=== PATIENT | female | born 1940 | race Caucasian/White ===

== ENCOUNTER 2024-01-29 22:38 | Inpatient (IN) | payer MEDICARE, OTHER ==
[~2024-01-29] VITALS: Ht 162.6 cm; Wt 49.9 kg
[2024-01-29] MEDS ORDERED: diphenhydrAMINE 50 MG/1 ML VIAL ONE (23:00)
[2024-01-29 23:11] LABS: BASOPHILS % (AUTO) 0.4 % (0.0-2.0); EOSINOPHILS # (AUTO) 0.2 K/uL (0.0-0.7); EOSINOPHILS % (AUTO) 2.8 % (0.0-7.0); HEMATOCRIT 39.8 % (31.2-41.9); HEMOGLOBIN 13.3 g/dL (10.9-14.3); LYMPHOCYTES # (AUTO) 1.1 K/uL (0.8-4.8); LYMPHOCYTES % (AUTO) 20.1 % (20.5-51.5); MEAN CORPUSCULAR HEMOGLOBIN 27.8 uug (24.7-32.8); MEAN CORPUSCULAR HGB CONC 33 g/dL (32.3-35.6); MEAN CORPUSCULAR VOLUME 83.4 fL (75.5-95.3); MONOCYTES # (AUTO) 0.5 K/uL (0.1-1.30); MONOCYTES % (AUTO) 8.7 % (0.0-11.0); NEUTROPHILS # (AUTO) 3.9 K/uL (1.8-8.9); PLATELET COUNT (AUTO) 210 K/uL (179-408); RED BLOOD CELL COUNT(AUTO) 4.78 MIL/uL (3.63-4.92); RED CELL DISTRIBUTION WIDTH 14.9 % (12.3-17.7); WHITE BLOOD COUNT (AUTO) 5.7 K/uL (3.8-11.8)
[2024-01-29] MEDS: diphenhydrAMINE 50 MG/1 ML VIAL IV ONE (23:12)
[2024-01-29] MEDS ORDERED: DONE5TAB34 PO (23:14)
[2024-01-29] MEDS ORDERED: QUET25TA PO (23:14)
[2024-01-29] MEDS ORDERED: ATOR20TA PO (23:14)
[2024-01-29 23:18] LABS: DIFFERENTIAL COMMENT 1
[2024-01-29 23:21] LABS: CALCIUM 9.3 mg/dL (8.5-10.1); CARBON DIOXIDE 28 mmol/L (21-32); CHLORIDE 105 mmol/L (98-107); CREATININE 0.8 mg/dL (0.6-1.3); GLUCOSE 111 mg/dL (74-106); SODIUM SERUM 142 mmol/L (136-145); UREA NITROGEN, BLOOD 17 mg/dL (7-18)
[2024-01-29 23:22] LABS: AMMONIA 15 umol/L (11-32)
[2024-01-29 23:34] LABS: ETHANOL < 3 MG/DL (0-10)
[2024-01-29 23:35] LABS: ALANINE AMINOTRANSFERASE 20 U/L (14-59); ALBUMIN 3.9 g/dL (3.4-5.0); ALKALINE PHOSPHATASE 67 U/L (50-136); ASPARTATE AMINOTRANSFERASE 11 U/L (15-37); BILIRUBIN,DIRECT 0.3 mg/dL (0.0-0.2); BILIRUBIN,TOTAL 0.8 mg/dL (0.2-1.0); TOTAL PROTEIN, SERUM 7.2 g/dL (6.4-8.2)
[2024-01-29] MEDS ORDERED: LORAZEPAM 2 MG/1 ML VIAL ONE (23:40)
[2024-01-29 23:41] LABS: *BILIRUBIN,URIN NEGATIVE (NEGATIVE); *BLOOD, URINE NEGATIVE (NEGATIVE); *CLARITY,URINE CLEAR (CLEAR); *COLOR,URINE YELLOW (YELLOW); *KETONES,URINE NEGATIVE (NEGATIVE); *PROTEIN,URINE TRACE (NEGATIVE); LEUKOCYTE ESTERASE ,URINE 1+ (NEGATIVE); NITRITE, URINE POSITIVE (NEGATIVE); PH,URINE 5.5 (5.0-8.0); UGLUCOSE NEGATIVE (NEGATIVE)
[2024-01-29] MEDS: LORAZEPAM 2 MG/1 ML VIAL IV ONE (23:43)
[2024-01-29 23:46] LABS: BACTERIA,URINE MANY /HPF (NONE SEEN); RBC,URINE NONE SEEN /HPF (0-3); SQUAMOUS EPITHELIAL CELL,UR FEW /HPF (NONE SEEN)
[2024-01-29 23:47] LABS: MUCUS,URINE FEW /LPF (0-FEW)
[2024-01-29 23:48] LABS: ACETAMINOPHEN < 10.0 ug/mL (10-30)
[2024-01-29 23:51] LABS: *AMPHETAMINE, URINE NEGATIVE (NEGATIVE); *BARBITURATE, URINE NEGATIVE (NEGATIVE); *BENZODIAZEPINE, URINE NEGATIVE (NEGATIVE); *CANNABINOID, URINE NEGATIVE (NEGATIVE); *COCCAINE, URINE NEGATIVE (NEGATIVE); *OPIATE, URINE NEGATIVE (NEGATIVE); *PHENCYCLIDINE SCREEN,URINE NEGATIVE (NEGATIVE); FENTANYL, URINE NEGATIVE (NEGATIVE)
[2024-01-30] VITALS (7 sets, daily range): BP systolic 129–149; BP diastolic 56–88; TEMP 97.1–98.8; O2SAT 90–100
[2024-01-30] MEDS ORDERED: CEFTRIAXONE /D5W 50ML IVPB **ER PYXIS IV ONE (01:05)
[2024-01-30] MEDS: CEFTRIAXONE 1 G in IV DEXTROSE 5% 50 ML IV ONE (01:08)
[2024-01-30] MEDS ORDERED: MAGNESIUM HYDROXIDE 30 ML LIQUID UDC PO PRN (01:15)
[2024-01-30] MEDS ORDERED: QUETIAPINE FUMARATE 25 MG TABLET PO SCH (01:15)
[2024-01-30] MEDS ORDERED: ONDANSETRON 4 MG/2 ML VIAL IV PRN (01:15)
[2024-01-30] MEDS: CEFTRIAXONE 1 G in IV DEXTROSE 5% 50 ML IV SCH (02:38)
[2024-01-30] MEDS: IV NS 1000 ML 1,000 ML IV SCH (02:41)
[2024-01-30] MEDS ORDERED: QUETIAPINE FUMARATE 25 MG TABLET PO PRN (05:43)
[2024-01-30] MEDS ORDERED: CEFTRIAXONE 1 G in IV DEXTROSE 5% 50 ML IV SCH (05:45)
[2024-01-30] MEDS: IV NS 1000 ML 1,000 ML IV PRN (05:54)
[2024-01-30] MEDS: QUETIAPINE FUMARATE 25 MG TABLET PO PRN (08:56)
[2024-01-30] MEDS: DONEPEZIL 5 MG TABLET PO SCH (08:56)
[2024-01-30] MEDS: ATORVASTATIN 20 MG TABLET PO SCH (20:17)
[2024-01-31] MEDS: CEFTRIAXONE 1 G in IV DEXTROSE 5% 50 ML IV SCH (00:38)
[2024-01-31 06:06] VITALS: BP 167/76; TEMP 97.6; O2SAT 97
[2024-01-31 06:23] VITALS: BP 127/68; TEMP 97.6; O2SAT 97
[2024-01-31 08:11] LABS: ALANINE AMINOTRANSFERASE 12 U/L (14-59); ALKALINE PHOSPHATASE 60 U/L (50-136); ASPARTATE AMINOTRANSFERASE 9 U/L (15-37); BILIRUBIN,TOTAL 0.6 mg/dL (0.2-1.0); CALCIUM 8.6 mg/dL (8.5-10.1); CARBON DIOXIDE 29 mmol/L (21-32); CHLORIDE 104 mmol/L (98-107); CHOLESTEROL 124 mg/dL (<200); CREATININE 0.8 mg/dL (0.6-1.3); GLUCOSE 118 mg/dL (74-106); PHOSPHOROUS 2.7 mg/dL (2.5-4.9); POTASSIUM 4.2 mmol/L (3.5-5.1); SODIUM SERUM 140 mmol/L (136-145); TRIGLYCERIDES 41 MG/DL (30-150); UREA NITROGEN, BLOOD 12 mg/dL (7-18)
[2024-01-31 08:17] LABS: IRON, SERUM 48 ug/dL (50-175)
[2024-01-31 08:28] LABS: BASOPHILS % (AUTO) 0.7 % (0.0-2.0); EOSINOPHILS # (AUTO) 0.2 K/uL (0.0-0.7); EOSINOPHILS % (AUTO) 4.6 % (0.0-7.0); HEMATOCRIT 36.4 % (31.2-41.9); HEMOGLOBIN 12.3 g/dL (10.9-14.3); LYMPHOCYTES % (AUTO) 18.7 % (20.5-51.5); MEAN CORPUSCULAR HEMOGLOBIN 28.5 uug (24.7-32.8); MEAN CORPUSCULAR HGB CONC 34 g/dL (32.3-35.6); MEAN CORPUSCULAR VOLUME 84.6 fL (75.5-95.3); MONOCYTES # (AUTO) 0.4 K/uL (0.1-1.30); MONOCYTES % (AUTO) 8.6 % (0.0-11.0); NEUTROPHILS # (AUTO) 3.4 K/uL (1.8-8.9); NEUTROPHILS % (AUTO) 67.4 % (38.5-71.5); PLATELET COUNT (AUTO) 181 K/uL (179-408); RED CELL DISTRIBUTION WIDTH 14.9 % (12.3-17.7); WHITE BLOOD COUNT (AUTO) 5.1 K/uL (3.8-11.8)
[2024-01-31 08:31] LABS: THYROID STIMULATING HORMONE 1.332 mIU/mL (0.358-3.740)
[2024-01-31 08:34] LABS: DIFFERENTIAL COMMENT 1
[2024-01-31 08:59] LABS: HDL CHOLESTEROL 64 mg/dL (40-60)
[2024-01-31] MEDS: ACETAMINOPHEN 325 MG TABLET PO PRN (09:10)
[2024-01-31 11:41] VITALS: BP 112/61; TEMP 98.2; O2SAT 96
[2024-01-31] MEDS: QUETIAPINE FUMARATE 25 MG TABLET PO PRN (14:02)
[2024-01-31 16:00] VITALS: BP 147/78; TEMP 97.6; O2SAT 97
[2024-01-31 20:28] VITALS: BP 158/85; TEMP 97.7; O2SAT 94
[2024-01-31 22:30] VITALS: BP 146/74; TEMP 98.1; O2SAT 97
[2024-02-01 06:00] LABS: BASOPHILS % (AUTO) 0.5 % (0.0-2.0); EOSINOPHILS # (AUTO) 0.2 K/uL (0.0-0.7); HEMATOCRIT 39.1 % (31.2-41.9); LYMPHOCYTES # (AUTO) 0.8 K/uL (0.8-4.8); LYMPHOCYTES % (AUTO) 18.7 % (20.5-51.5); MEAN CORPUSCULAR HGB CONC 33 g/dL (32.3-35.6); MEAN CORPUSCULAR VOLUME 83.9 fL (75.5-95.3); MONOCYTES # (AUTO) 0.4 K/uL (0.1-1.30); NEUTROPHILS # (AUTO) 2.8 K/uL (1.8-8.9); NEUTROPHILS % (AUTO) 67.8 % (38.5-71.5); PLATELET COUNT (AUTO) 172 K/uL (179-408); RED BLOOD CELL COUNT(AUTO) 4.66 MIL/uL (3.63-4.92); RED CELL DISTRIBUTION WIDTH 14.7 % (12.3-17.7); WHITE BLOOD COUNT (AUTO) 4.2 K/uL (3.8-11.8)
[2024-02-01 06:11] LABS: CALCIUM 8.6 mg/dL (8.5-10.1); CARBON DIOXIDE 27 mmol/L (21-32); CHLORIDE 102 mmol/L (98-107); CREATININE 0.6 mg/dL (0.6-1.3); GLUCOSE 111 mg/dL (74-106); SODIUM SERUM 139 mmol/L (136-145); UREA NITROGEN, BLOOD 10 mg/dL (7-18)
[2024-02-01 06:32] VITALS: BP_SYST 157; BP_SYST 158; BP_DIAS 77; BP_DIAS 85; TEMP 97.7; TEMP 98; O2SAT 94; O2SAT 98
[2024-02-01 07:06] LABS: DIFFERENTIAL COMMENT 1
[2024-02-01] MEDS: FAMOTIDINE 20 MG TABLET PO SCH (09:11)
[2024-02-01] MEDS: MULTIVITAMINS,THERAPEUTIC TABLET PO SCH (09:11)
[2024-02-01 12:00] VITALS: BP 141/86; TEMP 98.1; O2SAT 96
[2024-02-01 15:00] VITALS: BP 151/88; O2SAT 98
[2024-02-01 16:36] VITALS: BP 156/84; TEMP 97.8; O2SAT 93
[2024-02-01 17:52] VITALS: O2SAT 97
[2024-02-01 20:35] VITALS: BP 145/77; TEMP 97.7; O2SAT 95
[2024-02-01] MEDS: DIVALPROEX SPRINKLE 125 MG CAP.SPRINK PO SCH (21:57)
[2024-02-02 06:25] VITALS: BP 155/83; TEMP 97.7; O2SAT 95
[2024-02-02 07:24] LABS: CALCIUM 8.9 mg/dL (8.5-10.1); CARBON DIOXIDE 28 mmol/L (21-32); CHLORIDE 105 mmol/L (98-107); CREATININE 0.7 mg/dL (0.6-1.3); GLUCOSE 112 mg/dL (74-106); POTASSIUM 4.3 mmol/L (3.5-5.1); SODIUM SERUM 141 mmol/L (136-145); UREA NITROGEN, BLOOD 12 mg/dL (7-18)
[2024-02-02 07:26] LABS: BASOPHILS % (AUTO) 0.5 % (0.0-2.0); EOSINOPHILS # (AUTO) 0.1 K/uL (0.0-0.7); EOSINOPHILS % (AUTO) 2.9 % (0.0-7.0); HEMATOCRIT 37.7 % (31.2-41.9); HEMOGLOBIN 12.9 g/dL (10.9-14.3); LYMPHOCYTES # (AUTO) 0.7 K/uL (0.8-4.8); LYMPHOCYTES % (AUTO) 15.1 % (20.5-51.5); MEAN CORPUSCULAR HEMOGLOBIN 28.5 uug (24.7-32.8); MEAN CORPUSCULAR HGB CONC 34 g/dL (32.3-35.6); MEAN CORPUSCULAR VOLUME 83.3 fL (75.5-95.3); MONOCYTES # (AUTO) 0.4 K/uL (0.1-1.30); MONOCYTES % (AUTO) 9.4 % (0.0-11.0); NEUTROPHILS # (AUTO) 3.3 K/uL (1.8-8.9); NEUTROPHILS % (AUTO) 72.1 % (38.5-71.5); PLATELET COUNT (AUTO) 197 K/uL (179-408); RED BLOOD CELL COUNT(AUTO) 4.52 MIL/uL (3.63-4.92); RED CELL DISTRIBUTION WIDTH 14.5 % (12.3-17.7); WHITE BLOOD COUNT (AUTO) 4.6 K/uL (3.8-11.8)
[2024-02-02 07:30] LABS: DIFFERENTIAL COMMENT 1
[2024-02-02 08:00] VITALS: BP 171/88; TEMP 97.6; O2SAT 94
[2024-02-02] MEDS: QUETIAPINE FUMARATE 25 MG TABLET PO SCH (09:50)
[2024-02-02 10:59] VITALS: BP 140/75; TEMP 97.2; O2SAT 96
[2024-02-02] MEDS: METOPROLOL TARTRATE 25 MG TABLET PO SCH (12:36)
[2024-02-02] MEDS ORDERED: hydrALAZINE HCL 25 MG TABLET PO PRN (13:00)
[2024-02-02 15:04] VITALS: BP 147/70; TEMP 98.2; O2SAT 97
[2024-02-02] MEDS ORDERED: QUETIAPINE FUMARATE 25 MG TABLET PO PRN (17:30)
[2024-02-02] MEDS ORDERED: QUETIAPINE FUMARATE 25 MG TABLET PO SCH (17:30)
[2024-02-02 20:00] VITALS: BP 125/78; TEMP 97.8; O2SAT 94
[2024-02-03] MEDS: OLANZAPINE ZYDIS 5 MG TAB.RAPDIS SL SCH (08:54)
[2024-02-03 11:15] VITALS: BP 130/81; TEMP 98.4; O2SAT 95
[2024-02-03 11:18] VITALS: BP 130/81; TEMP 98.4; O2SAT 95
[2024-02-03 15:47] VITALS: BP 148/52; TEMP 98.4; O2SAT 98
[2024-02-03 21:14] VITALS: BP 116/71; TEMP 97.8; O2SAT 94
[2024-02-04] MEDS: OLANZAPINE ZYDIS 5 MG TAB.RAPDIS SL PRN (00:29)
[2024-02-04 06:50] VITALS: BP 149/62; TEMP 97.8; O2SAT 96
[2024-02-04 12:00] VITALS: BP 144/64; TEMP 98; O2SAT 94
[2024-02-04] MEDS: PROTEIN SUPPLEMENT (PROSTAT) 30 ML LIQUID PO SCH (12:42)
[2024-02-04 16:16] VITALS: BP 132/75; TEMP 98.3
== END 2024-02-04 18:20 | DRG 871 ==
LOC: ER 22:41 → MEDSURG3 01-30 01:04
PROVIDERS: ATTEND Internal Medicine
DX: A41.51 Sepsis due to Escherichia coli [E. coli] (principal); G92.8 Other toxic encephalopathy; N39.0 Urinary tract infection, site not specified; F03.911 Unspecified dementia, unspecified severity, with agitation; F05 Delirium due to known physiological condition; Z68.1 Body mass index [BMI] 19.9 or less, adult; D68.59 Other primary thrombophilia; I67.82 Cerebral ischemia; E44.0 Moderate protein-calorie malnutrition; F03.B11 Unspecified dementia, moderate, with agitation; R62.7 Adult failure to thrive; Z87.891 Personal history of nicotine dependence; I77.819 Aortic ectasia, unspecified site; Z74.09 Other reduced mobility; E78.5 Hyperlipidemia, unspecified; Z78.1 Physical restraint status; Z87.81 Personal history of (healed) traumatic fracture; Z91.81 History of falling; I10 Essential (primary) hypertension; Z79.899 Other long term (current) drug therapy
CPT/HCPCS: 36415; 70450; 71045; 83550; 83605; 83735; 84100; 84443; 84484; 85025; 85730; 87040; 93005; A4606; A4663; A6209; G0378; G0480; J0696; J1200; J2060; J7040

== ENCOUNTER 2024-06-10 16:34 | Emergency (ER) | payer MEDICARE, OTHER ==
[~2024-06-10] VITALS: Ht 162.6 cm; Wt 56.7 kg
[2024-06-10 16:34] VITALS: O2SAT 94
[~2024-06-10 16:34] MED LIST: ATOR20TA PO; DONE5TAB34 PO; QUET25TA PO
== END 2024-06-10 17:38 | disposition home or self-care (01) ==
LOC: ER 16:34
DX: S52.612A Displaced fracture of left ulna styloid process, initial encounter for closed fracture (principal); S52.592A Other fractures of lower end of left radius, initial encounter for closed fracture; F03.90 Unspecified dementia, unspecified severity, without behavioral disturbance, psychotic disturbance, mood disturbance, and anxiety; Z79.899 Other long term (current) drug therapy; W18.39XA Other fall on same level, initial encounter; Y93.89 Activity, other specified; Y92.89 Other specified places as the place of occurrence of the external cause; Y99.8 Other external cause status
CPT/HCPCS: 73100; A4606; A4663

== ENCOUNTER 2024-06-19 13:40 | Inpatient (IN) | payer MEDICARE, OTHER ==
[~2024-06-19] VITALS: Ht 154.9 cm; Wt 58.7 kg
[2024-06-19] MEDS ORDERED: OLAN2.5T3 PO (14:06)
[2024-06-19] MEDS ORDERED: DIVA125C5 PO (14:06)
[2024-06-19] MEDS ORDERED: METO25TA6 PO (14:06)
[2024-06-19] MEDS ORDERED: DONE10TA44 PO (14:06)
[2024-06-19] MEDS ORDERED: FAMO20TA8 PO (14:06)
[2024-06-19 14:21] LABS: BASOPHILS % (AUTO) 0.6 % (0.0-2.0); EOSINOPHILS # (AUTO) 0.3 K/uL (0.0-0.7); EOSINOPHILS % (AUTO) 5.6 % (0.0-7.0); HEMATOCRIT 38.9 % (31.2-41.9); LYMPHOCYTES # (AUTO) 1.4 K/uL (0.8-4.8); LYMPHOCYTES % (AUTO) 29.8 % (20.5-51.5); MEAN CORPUSCULAR HEMOGLOBIN 29.7 uug (24.7-32.8); MEAN CORPUSCULAR HGB CONC 33 g/dL (32.3-35.6); MEAN CORPUSCULAR VOLUME 88.9 fL (75.5-95.3); MONOCYTES # (AUTO) 0.4 K/uL (0.1-1.30); MONOCYTES % (AUTO) 9.1 % (0.0-11.0); NEUTROPHILS # (AUTO) 2.6 K/uL (1.8-8.9); NEUTROPHILS % (AUTO) 54.9 % (38.5-71.5); PLATELET COUNT (AUTO) 227 K/uL (179-408); RED BLOOD CELL COUNT(AUTO) 4.37 MIL/uL (3.63-4.92); RED CELL DISTRIBUTION WIDTH 14.4 % (12.3-17.7); WHITE BLOOD COUNT (AUTO) 4.8 K/uL (3.8-11.8)
[2024-06-19 14:35] LABS: DIFFERENTIAL COMMENT 1
[2024-06-19] MEDS: IV NORMAL SALINE 1000 ML BAG IV ONE (14:40)
[2024-06-19 15:01] LABS: *BILIRUBIN,URIN NEGATIVE (NEGATIVE); *BLOOD, URINE NEGATIVE (NEGATIVE); *CLARITY,URINE SLIGHTLY CLOUDY (CLEAR); *COLOR,URINE YELLOW (YELLOW); *KETONES,URINE NEGATIVE (NEGATIVE); *PROTEIN,URINE NEGATIVE (NEGATIVE); *UROBILINOGEN,URINE 0.2 E.U./dl (NORMAL); LEUKOCYTE ESTERASE ,URINE TRACE (NEGATIVE); NITRITE, URINE NEGATIVE (NEGATIVE); PH,URINE 6.5 (5.0-8.0); UGLUCOSE NEGATIVE (NEGATIVE)
[2024-06-19 15:13] LABS: CALCIUM 9.7 mg/dL (8.5-10.1); CARBON DIOXIDE 29 mmol/L (21-32); CHLORIDE 109 mmol/L (98-107); CREATININE 0.9 mg/dL (0.6-1.3); GLUCOSE 99 mg/dL (74-106); SODIUM SERUM 148 mmol/L (136-145); UREA NITROGEN, BLOOD 20 mg/dL (7-18)
[2024-06-19 15:29] LABS: ALANINE AMINOTRANSFERASE 12 U/L (14-59); ALBUMIN 3.7 g/dL (3.4-5.0); ALKALINE PHOSPHATASE 67 U/L (50-136); ASPARTATE AMINOTRANSFERASE 11 U/L (15-37); BILIRUBIN,DIRECT 0.1 mg/dL (0.0-0.2); BILIRUBIN,TOTAL 0.6 mg/dL (0.2-1.0); NT-PRO BNP 526 pg/mL (0-125); TOTAL PROTEIN, SERUM 8.6 g/dL (6.4-8.2)
[2024-06-19 18:18] LABS: BACTERIA,URINE MANY /HPF (NONE SEEN); SQUAMOUS EPITHELIAL CELL,UR FEW /HPF (NONE SEEN); WBC,URINE 20-50 /HPF (0-3)
[2024-06-19 18:19] LABS: URINE AMORPHOUS URATE FEW /HPF
[2024-06-19] MEDS ORDERED: MAGNESIUM HYDROXIDE 30 ML LIQUID UDC PO PRN (18:45)
[2024-06-19] MEDS ORDERED: REMEDY ESSENTIAL ZINC PASTE 113 GM TP PRN (18:45)
[2024-06-19] MEDS ORDERED: OLANZAPINE 2.5 MG TABLET PO PRN (18:45)
[2024-06-19] MEDS ORDERED: ACETAMINOPHEN 325 MG TABLET PO PRN (18:45)
[2024-06-19] MEDS ORDERED: QUETIAPINE FUMARATE 25 MG TABLET PO PRN (18:45)
[2024-06-19] MEDS ORDERED: ONDANSETRON 4 MG/2 ML VIAL IV PRN (18:45)
[2024-06-19] MEDS: IV 1/2NS 1000 ML 1,000 ML IV SCH (19:45)
[2024-06-19] MEDS: CEFTRIAXONE 1 G in IV DEXTROSE 5% 50 ML IV SCH (21:00)
[2024-06-19] MEDS: ATORVASTATIN 20 MG TABLET PO SCH (21:00)
[2024-06-19] MEDS: DONEPEZIL 10 MG TABLET PO SCH (21:00)
[2024-06-19] MEDS ORDERED: CEFTRIAXONE 1 G VIAL ONE (23:24)
[2024-06-19] MEDS ORDERED: DONEPEZIL 5 MG TABLET ONE (23:25)
[2024-06-19] MEDS ORDERED: ATORVASTATIN 20 MG TABLET ONE (23:25)
[2024-06-19] MEDS ORDERED: LIDOCAINE HCL 1% 20 ML VIAL ONE (23:27)
[2024-06-19] MEDS ORDERED: CEFTRIAXONE /D5W 50ML IVPB **ER PYXIS IV ONE (23:43)
[2024-06-20] VITALS (7 sets, daily range): BP systolic 115–144; BP diastolic 58–96; TEMP 97.5–98.6; O2SAT 95–100
[2024-06-20] MEDS ORDERED: PANTOPRAZOLE SODIUM 40 MG VIAL IV SCH (09:00)
[2024-06-20] MEDS: DONEPEZIL 5 MG TABLET PO SCH (09:04)
[2024-06-20] MEDS: DIVALPROEX SPRINKLE 125 MG CAP.SPRINK PO SCH (09:04)
[2024-06-20] MEDS: FAMOTIDINE 20 MG TABLET PO SCH (09:04)
[2024-06-20 09:56] LABS: BASOPHILS % (AUTO) 0.7 % (0.0-2.0); EOSINOPHILS # (AUTO) 0.2 K/uL (0.0-0.7); EOSINOPHILS % (AUTO) 4.8 % (0.0-7.0); HEMATOCRIT 36.7 % (31.2-41.9); HEMOGLOBIN 12.6 g/dL (10.9-14.3); LYMPHOCYTES # (AUTO) 1.1 K/uL (0.8-4.8); LYMPHOCYTES % (AUTO) 26.4 % (20.5-51.5); MEAN CORPUSCULAR HEMOGLOBIN 30.8 uug (24.7-32.8); MEAN CORPUSCULAR HGB CONC 34 g/dL (32.3-35.6); MEAN CORPUSCULAR VOLUME 89.7 fL (75.5-95.3); MONOCYTES # (AUTO) 0.5 K/uL (0.1-1.30); MONOCYTES % (AUTO) 11.3 % (0.0-11.0); NEUTROPHILS # (AUTO) 2.3 K/uL (1.8-8.9); NEUTROPHILS % (AUTO) 56.8 % (38.5-71.5); PLATELET COUNT (AUTO) 196 K/uL (179-408); RED BLOOD CELL COUNT(AUTO) 4.09 MIL/uL (3.63-4.92); RED CELL DISTRIBUTION WIDTH 13.8 % (12.3-17.7); WHITE BLOOD COUNT (AUTO) 4.1 K/uL (3.8-11.8)
[2024-06-20 10:10] LABS: DIFFERENTIAL COMMENT 1
[2024-06-20 10:32] LABS: CALCIUM 9.2 mg/dL (8.5-10.1); CARBON DIOXIDE 25 mmol/L (21-32); CHLORIDE 109 mmol/L (98-107); CREATININE 0.7 mg/dL (0.6-1.3); GLUCOSE 80 mg/dL (74-106); MAGNESIUM 2.1 mg/dL (1.8-2.4); PHOSPHOROUS 3.7 mg/dL (2.5-4.9); POTASSIUM 4.5 mmol/L (3.5-5.1); SODIUM SERUM 145 mmol/L (136-145); UREA NITROGEN, BLOOD 15 mg/dL (7-18)
[2024-06-20] MEDS: METOPROLOL TARTRATE 25 MG TABLET PO SCH (16:57)
[2024-06-21 06:44] LABS: BASOPHILS % (AUTO) 0.7 % (0.0-2.0); EOSINOPHILS # (AUTO) 0.2 K/uL (0.0-0.7); EOSINOPHILS % (AUTO) 5.2 % (0.0-7.0); HEMATOCRIT 32.9 % (31.2-41.9); HEMOGLOBIN 11.5 g/dL (10.9-14.3); LYMPHOCYTES # (AUTO) 1.4 K/uL (0.8-4.8); LYMPHOCYTES % (AUTO) 36.6 % (20.5-51.5); MEAN CORPUSCULAR HEMOGLOBIN 31.2 uug (24.7-32.8); MEAN CORPUSCULAR HGB CONC 35 g/dL (32.3-35.6); MEAN CORPUSCULAR VOLUME 88.8 fL (75.5-95.3); MONOCYTES # (AUTO) 0.4 K/uL (0.1-1.30); MONOCYTES % (AUTO) 11.4 % (0.0-11.0); NEUTROPHILS # (AUTO) 1.8 K/uL (1.8-8.9); NEUTROPHILS % (AUTO) 46.1 % (38.5-71.5); PLATELET COUNT (AUTO) 176 K/uL (179-408); WHITE BLOOD COUNT (AUTO) 3.9 K/uL (3.8-11.8)
[2024-06-21 06:51] LABS: DIFFERENTIAL COMMENT 1
[2024-06-21 07:15] LABS: CALCIUM 8.7 mg/dL (8.5-10.1); CARBON DIOXIDE 25 mmol/L (21-32); CHLORIDE 106 mmol/L (98-107); CREATININE 0.8 mg/dL (0.6-1.3); GLUCOSE 97 mg/dL (74-106); MAGNESIUM 1.8 mg/dL (1.8-2.4); PHOSPHOROUS 3.6 mg/dL (2.5-4.9); POTASSIUM 4.2 mmol/L (3.5-5.1); SODIUM SERUM 140 mmol/L (136-145); UREA NITROGEN, BLOOD 17 mg/dL (7-18)
[2024-06-21 11:58] VITALS: BP 116/96; TEMP 98.6; O2SAT 100
[2024-06-21 16:00] VITALS: BP 135/62; TEMP 98.6; O2SAT 100
[2024-06-21 19:05] VITALS: BP 132/63; TEMP 96.9; O2SAT 95
[2024-06-21 23:27] VITALS: BP 128/52; TEMP 97.7; O2SAT 94
[2024-06-22 06:20] VITALS: BP 143/58; TEMP 97.8; O2SAT 95
[2024-06-22 08:00] VITALS: BP 153/67; TEMP 97.5; O2SAT 97
[2024-06-22 08:57] LABS: BASOPHILS % (AUTO) 0.7 % (0.0-2.0); EOSINOPHILS # (AUTO) 0.2 K/uL (0.0-0.7); EOSINOPHILS % (AUTO) 4.1 % (0.0-7.0); HEMATOCRIT 35.4 % (31.2-41.9); HEMOGLOBIN 12.3 g/dL (10.9-14.3); LYMPHOCYTES # (AUTO) 0.9 K/uL (0.8-4.8); LYMPHOCYTES % (AUTO) 21.3 % (20.5-51.5); MEAN CORPUSCULAR HEMOGLOBIN 30.1 uug (24.7-32.8); MEAN CORPUSCULAR HGB CONC 35 g/dL (32.3-35.6); MONOCYTES # (AUTO) 0.4 K/uL (0.1-1.30); NEUTROPHILS # (AUTO) 2.8 K/uL (1.8-8.9); NEUTROPHILS % (AUTO) 64.9 % (38.5-71.5); PLATELET COUNT (AUTO) 187 K/uL (179-408); RED BLOOD CELL COUNT(AUTO) 4.07 MIL/uL (3.63-4.92); RED CELL DISTRIBUTION WIDTH 14.1 % (12.3-17.7); WHITE BLOOD COUNT (AUTO) 4.2 K/uL (3.8-11.8)
[2024-06-22 09:07] LABS: DIFFERENTIAL COMMENT 1
[2024-06-22 09:27] LABS: CALCIUM 8.6 mg/dL (8.5-10.1); CARBON DIOXIDE 26 mmol/L (21-32); CHLORIDE 104 mmol/L (98-107); CREATININE 0.8 mg/dL (0.6-1.3); GLUCOSE 119 mg/dL (74-106); MAGNESIUM 1.8 mg/dL (1.8-2.4); PHOSPHOROUS 3.1 mg/dL (2.5-4.9); POTASSIUM 4.1 mmol/L (3.5-5.1); SODIUM SERUM 140 mmol/L (136-145); UREA NITROGEN, BLOOD 10 mg/dL (7-18)
[2024-06-22] MEDS ORDERED: NITR100C6 PO (16:10)
[2024-06-22 17:13] VITALS: BP 144/77; TEMP 97.6; O2SAT 97
[2024-06-22 18:06] VITALS: BP 144/77
[2024-06-22] MEDS ORDERED: NITROFURANTOIN/NITROFURAN MAC 100 MG CAPSULE PO SCH (21:00)
== END 2024-06-22 18:00 | DRG 689 ==
LOC: ER 13:40 → MEDSURG3 06-20 01:01 → TELE3 06-20 02:01 → MEDSURG3 06-21 06:14 → MEDSURG1 06-21 23:00
DX: N39.0 Urinary tract infection, site not specified (principal); G92.8 Other toxic encephalopathy; N17.0 Acute kidney failure with tubular necrosis; E87.0 Hyperosmolality and hypernatremia; B95.2 Enterococcus as the cause of diseases classified elsewhere; E86.0 Dehydration; F01.50 Vascular dementia, unspecified severity, without behavioral disturbance, psychotic disturbance, mood disturbance, and anxiety; E78.5 Hyperlipidemia, unspecified; Z79.899 Other long term (current) drug therapy; S52.502D Unspecified fracture of the lower end of left radius, subsequent encounter for closed fracture with routine healing; W19.XXXD Unspecified fall, subsequent encounter; I11.9 Hypertensive heart disease without heart failure
CPT/HCPCS: 36415; 70450; 71045; 83605; 83735; 84100; 84484; 85025; 87040; A4606; A4663; G0378; J0696; J3490; J7040

== ENCOUNTER 2024-06-22 18:01 | Inpatient (IN) | payer MEDICARE, OTHER ==
[~2024-06-22] VITALS: Ht 165.1 cm; Wt 60.4 kg
[~2024-06-22 18:01] MED LIST changes: +DIVA125C5 PO; +DONE10TA44 PO; +FAMO20TA8 PO; +METO25TA6 PO; +NITR100C6 PO; +OLAN2.5T3 PO
[2024-06-22 20:21] VITALS: BP 134/66; TEMP 97.1; O2SAT 93
[2024-06-22] MEDS: DONEPEZIL 10 MG TABLET PO SCH (21:07)
[2024-06-22] MEDS: ATORVASTATIN 20 MG TABLET PO SCH (21:07)
[2024-06-22] MEDS ORDERED: REMEDY ESSENTIAL ZINC PASTE 113 GM TOP PRN (23:00)
[2024-06-23 06:19] VITALS: BP 145/73; TEMP 98.5; O2SAT 95
[2024-06-23 06:45] VITALS: BP 119/72; TEMP 97.2; O2SAT 93
[2024-06-23 09:15] VITALS: BP 148/70; TEMP 97.6; O2SAT 95
[2024-06-23] MEDS: NITROFURANTOIN/NITROFURAN MAC 100 MG CAPSULE PO SCH (10:18)
[2024-06-23] MEDS: DONEPEZIL 5 MG TABLET PO SCH (10:19)
[2024-06-23] MEDS: FAMOTIDINE 20 MG TABLET PO SCH (10:19)
[2024-06-23] MEDS: DIVALPROEX SPRINKLE 125 MG CAP.SPRINK PO SCH (10:19)
[2024-06-23] MEDS: METOPROLOL TARTRATE 25 MG TABLET PO SCH (10:19)
[2024-06-23 15:17] VITALS: TEMP 97.5
[2024-06-23 20:00] VITALS: TEMP 97.2
[2024-06-24 06:43] VITALS: TEMP 97.1
[2024-06-24 08:07] VITALS: BP 126/64; TEMP 97.7; O2SAT 95
[2024-06-24] MEDS: OLANZAPINE 2.5 MG TABLET PO PRN (10:49)
[2024-06-24 11:57] LABS: ABG BASE EXCESS -0.8 mmol/L (-2.0-3.0); ABG HCO3 22.9 mmol/L (21.0-28.0); ABG PCO2 35.2 mmHg (32.0-45.0); ABG PH 7.432 (7.350-7.450); ABG PO2 51.4 mmHg (83.0-108.0); ABG TOTAL HEMOGLOBIN 13.8 G/dL (12.0-16.0); AaDO2 87.7 mmHg; COHb 0.8 % (0.5-1.5); MetHb 0.3 % (0.0-1.5); O2Hb 83.2 % (94.0-98.0)
[2024-06-24 13:11] LABS: BASOPHILS % (AUTO) 0.6 % (0.0-2.0); EOSINOPHILS # (AUTO) 0.3 K/uL (0.0-0.7); EOSINOPHILS % (AUTO) 5.2 % (0.0-7.0); HEMATOCRIT 36.8 % (31.2-41.9); HEMOGLOBIN 12.4 g/dL (10.9-14.3); LYMPHOCYTES # (AUTO) 1.1 K/uL (0.8-4.8); LYMPHOCYTES % (AUTO) 22.4 % (20.5-51.5); MEAN CORPUSCULAR HEMOGLOBIN 29.7 uug (24.7-32.8); MEAN CORPUSCULAR HGB CONC 34 g/dL (32.3-35.6); MEAN CORPUSCULAR VOLUME 87.8 fL (75.5-95.3); MONOCYTES # (AUTO) 0.5 K/uL (0.1-1.30); MONOCYTES % (AUTO) 11.2 % (0.0-11.0); NEUTROPHILS % (AUTO) 60.6 % (38.5-71.5); PLATELET COUNT (AUTO) 197 K/uL (179-408); RED BLOOD CELL COUNT(AUTO) 4.19 MIL/uL (3.63-4.92); RED CELL DISTRIBUTION WIDTH 13.9 % (12.3-17.7); WHITE BLOOD COUNT (AUTO) 4.9 K/uL (3.8-11.8)
[2024-06-24 13:14] LABS: DIFFERENTIAL COMMENT 1
[2024-06-24 13:30] LABS: ALANINE AMINOTRANSFERASE 12 U/L (14-59); ALBUMIN 3.2 g/dL (3.4-5.0); ALKALINE PHOSPHATASE 67 U/L (50-136); ASPARTATE AMINOTRANSFERASE 9 U/L (15-37); BILIRUBIN,TOTAL 0.7 mg/dL (0.2-1.0); CALCIUM 9.3 mg/dL (8.5-10.1); CARBON DIOXIDE 26 mmol/L (21-32); CHLORIDE 106 mmol/L (98-107); CREATININE 0.8 mg/dL (0.6-1.3); GLUCOSE 110 mg/dL (74-106); MAGNESIUM 2.1 mg/dL (1.8-2.4); PHOSPHOROUS 3.9 mg/dL (2.5-4.9); POTASSIUM 4.3 mmol/L (3.5-5.1); SODIUM SERUM 142 mmol/L (136-145); TOTAL PROTEIN, SERUM 6.3 g/dL (6.4-8.2); UREA NITROGEN, BLOOD 23 mg/dL (7-18)
[2024-06-24 14:45] LABS: AMMONIA 18 umol/L (11-32)
[2024-06-24] MEDS ORDERED: ALBUTEROL SULFATE 2.5 MG/3 ML NEBU NEB PRN (15:30)
[2024-06-24] MEDS ORDERED: ACETAMINOPHEN 325 MG TABLET PO PRN (15:30)
[2024-06-24] MEDS ORDERED: TRAMADOL HCL 50 MG TABLET PO PRN (16:15)
[2024-06-24 16:22] VITALS: BP 123/55; TEMP 97.4; O2SAT 95
[2024-06-24] MEDS: HYDROCODONE/APAP 5-325MG TABLET PO PRN (17:21)
[2024-06-24 21:23] VITALS: BP 90/55; TEMP 97.9; O2SAT 95
[2024-06-25 06:41] VITALS: BP 129/52; TEMP 97.6; O2SAT 95
[2024-06-25 08:32] VITALS: BP 119/52; TEMP 97.7; O2SAT 90
[2024-06-25 16:07] VITALS: BP 124/63; TEMP 97.6; O2SAT 95
[2024-06-25] MEDS: QUETIAPINE FUMARATE 25 MG TABLET PO PRN (19:37)
[2024-06-25 21:45] VITALS: BP 105/70; TEMP 98.1; O2SAT 95
[2024-06-25] MEDS: DOCUSATE SODIUM 100 MG CAPSULE PO SCH (22:42)
[2024-06-26 06:34] VITALS: BP 120/73; TEMP 97.4; O2SAT 95
[2024-06-26 20:47] VITALS: BP 96/72; TEMP 98.3; O2SAT 96
[2024-06-27 05:43] VITALS: BP 147/71; TEMP 98.2; O2SAT 96
[2024-06-27 08:00] VITALS: BP 128/61; TEMP 97.6; O2SAT 94
[2024-06-27 16:21] VITALS: BP 111/67; TEMP 97.8; O2SAT 94
[2024-06-27 20:31] VITALS: BP 134/65; TEMP 98.1; O2SAT 95
[2024-06-28 06:40] VITALS: BP 113/64; TEMP 98.2; O2SAT 90
[2024-06-28 07:45] VITALS: O2SAT 95
[2024-06-28 08:06] VITALS: BP 111/62; TEMP 97.8; O2SAT 95
[2024-06-28 12:41] LABS: BASOPHILS % (AUTO) 0.1 % (0.0-2.0); EOSINOPHILS % (AUTO) 0.1 % (0.0-7.0); HEMATOCRIT 35.3 % (31.2-41.9); HEMOGLOBIN 11.9 g/dL (10.9-14.3); LYMPHOCYTES # (AUTO) 0.8 K/uL (0.8-4.8); MEAN CORPUSCULAR HEMOGLOBIN 29.8 uug (24.7-32.8); MEAN CORPUSCULAR HGB CONC 34 g/dL (32.3-35.6); MEAN CORPUSCULAR VOLUME 88.1 fL (75.5-95.3); MONOCYTES # (AUTO) 1.6 K/uL (0.1-1.30); MONOCYTES % (AUTO) 14.2 % (0.0-11.0); NEUTROPHILS # (AUTO) 8.8 K/uL (1.8-8.9); NEUTROPHILS % (AUTO) 78.6 % (38.5-71.5); PLATELET COUNT (AUTO) 183 K/uL (179-408); RED CELL DISTRIBUTION WIDTH 13.7 % (12.3-17.7); WHITE BLOOD COUNT (AUTO) 11.2 K/uL (3.8-11.8)
[2024-06-28 12:48] LABS: ABG BASE EXCESS 4.1 mmol/L (-2.0-3.0); ABG HCO3 27.7 mmol/L (21.0-28.0); ABG PH 7.481 (7.350-7.450); ABG PO2 74.4 mmHg (83.0-108.0); ABG SITE RIGHT RADIAL; ABG TOTAL HEMOGLOBIN 13.3 G/dL (12.0-16.0); AaDO2 95.9 mmHg; COHb 1.4 % (0.5-1.5); MetHb 0.1 % (0.0-1.5)
[2024-06-28 12:52] LABS: DIFFERENTIAL COMMENT 1
[2024-06-28 12:53] LABS: AMMONIA 26 umol/L (11-32)
[2024-06-28 13:08] LABS: CALCIUM 9.3 mg/dL (8.5-10.1); CARBON DIOXIDE 29 mmol/L (21-32); CHLORIDE 106 mmol/L (98-107); CREATININE 0.8 mg/dL (0.6-1.3); GLUCOSE 116 mg/dL (74-106); POTASSIUM 4.3 mmol/L (3.5-5.1); SODIUM SERUM 145 mmol/L (136-145); UREA NITROGEN, BLOOD 19 mg/dL (7-18)
[2024-06-28 13:14] LABS: ALANINE AMINOTRANSFERASE 6 U/L (14-59); ALBUMIN 2.9 g/dL (3.4-5.0); ALKALINE PHOSPHATASE 72 U/L (50-136); ASPARTATE AMINOTRANSFERASE 6 U/L (15-37); BILIRUBIN,TOTAL 1.1 mg/dL (0.2-1.0); TOTAL PROTEIN, SERUM 6.7 g/dL (6.4-8.2)
[2024-06-28] MEDS: IV D5/ 0.9% NACL 1,000 ML IV PRN (15:01)
[2024-06-28 15:13] LABS: *BILIRUBIN,URIN NEGATIVE (NEGATIVE); *BLOOD, URINE NEGATIVE (NEGATIVE); *CLARITY,URINE CLEAR (CLEAR); *COLOR,URINE AMBER (YELLOW); *KETONES,URINE TRACE (NEGATIVE); *PROTEIN,URINE TRACE (NEGATIVE); *UROBILINOGEN,URINE 0.2 E.U./dl (NORMAL); LEUKOCYTE ESTERASE ,URINE NEGATIVE (NEGATIVE); NITRITE, URINE NEGATIVE (NEGATIVE); PH,URINE 5.5 (5.0-8.0); UGLUCOSE NEGATIVE (NEGATIVE)
[2024-06-28 15:44] LABS: BACTERIA,URINE FEW /HPF (NONE SEEN); CALCIUM OXALATE CRYSTALS,UR FEW /HPF (NONE SEEN); SQUAMOUS EPITHELIAL CELL,UR FEW /HPF (NONE SEEN); WBC,URINE 0-3 /HPF (0-3)
[2024-06-28 16:09] VITALS: BP 106/67; TEMP 97.6; O2SAT 95
[2024-06-28 17:00] VITALS: BP 106/67
[2024-06-28] MEDS: PIPERACILLIN SODIUM/TAZOBACTAM 3.375 G in IV DEXTROSE 5% 50 ML IV SCH (17:46)
[2024-06-29] MEDS ORDERED: PIPERACILLIN SODIUM/TAZOBACTAM 3.375 G in IV DEXTROSE 5% 100 ML IV SCH (02:00)
== END 2024-06-28 21:00 | disposition short-term general hospital (02) | DRG 689 ==
PROVIDERS: ADMIT Physical Medicine & Rehabilitation Pain Medicine; ATTEND Physical Medicine & Rehabilitation Pain Medicine
DX: N39.0 Urinary tract infection, site not specified (principal); G92.8 Other toxic encephalopathy; N17.0 Acute kidney failure with tubular necrosis; D68.59 Other primary thrombophilia; E44.0 Moderate protein-calorie malnutrition; I10 Essential (primary) hypertension; Z91.81 History of falling; F01.50 Vascular dementia, unspecified severity, without behavioral disturbance, psychotic disturbance, mood disturbance, and anxiety; E78.5 Hyperlipidemia, unspecified; R53.1 Weakness; E86.0 Dehydration; F91.9 Conduct disorder, unspecified; I77.819 Aortic ectasia, unspecified site; R62.7 Adult failure to thrive; Z87.81 Personal history of (healed) traumatic fracture; Z87.891 Personal history of nicotine dependence
CPT/HCPCS: 36415; 36600; 70450; 71045; 82803; 83605; 83735; 84100; 85025; 93005; 97535-GO-CO; J2543

== ENCOUNTER 2024-06-28 21:05 | Inpatient (IN) | payer MEDICARE, OTHER ==
[~2024-06-28] VITALS: Ht 154.9 cm; Wt 58.5 kg
[~2024-06-28 21:05] MED LIST changes: -DONE5TAB34 PO
[2024-06-28] MEDS: IV NORMAL SALINE 500 ML BAG IV ONE (22:45)
[2024-06-28 22:54] LABS: BASOPHILS % (AUTO) 0.4 % (0.0-2.0); EOSINOPHILS % (AUTO) 0.4 % (0.0-7.0); HEMATOCRIT 32.6 % (31.2-41.9); HEMOGLOBIN 11.1 g/dL (10.9-14.3); LYMPHOCYTES # (AUTO) 1.2 K/uL (0.8-4.8); LYMPHOCYTES % (AUTO) 12.9 % (20.5-51.5); MEAN CORPUSCULAR HEMOGLOBIN 30.1 uug (24.7-32.8); MEAN CORPUSCULAR HGB CONC 34 g/dL (32.3-35.6); MEAN CORPUSCULAR VOLUME 88.6 fL (75.5-95.3); MONOCYTES # (AUTO) 1.4 K/uL (0.1-1.30); MONOCYTES % (AUTO) 15.3 % (0.0-11.0); NEUTROPHILS # (AUTO) 6.6 K/uL (1.8-8.9); PLATELET COUNT (AUTO) 180 K/uL (179-408); RED BLOOD CELL COUNT(AUTO) 3.68 MIL/uL (3.63-4.92); RED CELL DISTRIBUTION WIDTH 13.9 % (12.3-17.7); WHITE BLOOD COUNT (AUTO) 9.2 K/uL (3.8-11.8)
[2024-06-28 22:55] LABS: NEUTROPHILS % (MANUAL) 0 % (42-75)
[2024-06-28 23:03] LABS: CALCIUM 8.9 mg/dL (8.5-10.1); CARBON DIOXIDE 30 mmol/L (21-32); CHLORIDE 109 mmol/L (98-107); CREATININE 0.9 mg/dL (0.6-1.3); GLUCOSE 165 mg/dL (74-106); POTASSIUM 3.8 mmol/L (3.5-5.1); SODIUM SERUM 145 mmol/L (136-145); UREA NITROGEN, BLOOD 19 mg/dL (7-18)
[2024-06-28 23:16] LABS: ALANINE AMINOTRANSFERASE 6 U/L (14-59); ALBUMIN 2.5 g/dL (3.4-5.0); ALKALINE PHOSPHATASE 68 U/L (50-136); ASPARTATE AMINOTRANSFERASE 7 U/L (15-37); BILIRUBIN,DIRECT 0.2 mg/dL (0.0-0.2); BILIRUBIN,TOTAL 0.8 mg/dL (0.2-1.0); NT-PRO BNP 849 pg/mL (0-125)
[2024-06-29 01:28] LABS: *BILIRUBIN,URIN NEGATIVE (NEGATIVE); *CLARITY,URINE CLEAR (CLEAR); *COLOR,URINE YELLOW (YELLOW); *KETONES,URINE NEGATIVE (NEGATIVE); *PROTEIN,URINE TRACE (NEGATIVE); *UROBILINOGEN,URINE 0.2 E.U./dl (NORMAL); LEUKOCYTE ESTERASE ,URINE NEGATIVE (NEGATIVE); NITRITE, URINE NEGATIVE (NEGATIVE); PH,URINE 5.5 (5.0-8.0); UGLUCOSE TRACE (NEGATIVE)
[2024-06-29 01:57] LABS: *BLOOD, URINE TRACE (NEGATIVE)
[2024-06-29 02:30] VITALS: BP 103/65; TEMP 98.7; O2SAT 94
[2024-06-29 02:44] LABS: WBC,URINE 0-3 /HPF (0-3)
[2024-06-29 02:45] LABS: BACTERIA,URINE NONE SEEN /HPF (NONE SEEN); MUCUS,URINE FEW /LPF (0-FEW); SQUAMOUS EPITHELIAL CELL,UR FEW /HPF (NONE SEEN)
[2024-06-29] MEDS ORDERED: ACETAMINOPHEN 325 MG TABLET PO PRN (03:00)
[2024-06-29] MEDS ORDERED: REMEDY ESSENTIAL ZINC PASTE 113 GM TP PRN (03:00)
[2024-06-29] MEDS ORDERED: ONDANSETRON 4 MG/2 ML VIAL IV PRN (03:00)
[2024-06-29] MEDS ORDERED: MAGNESIUM HYDROXIDE 30 ML LIQUID UDC PO PRN (03:00)
[2024-06-29] MEDS ORDERED: ALBUTEROL SULFATE 2.5 MG/3 ML NEBU NEB PRN (03:00)
[2024-06-29] MEDS: IV NS 1000 ML 1,000 ML IV PRN (03:35)
[2024-06-29] MEDS ORDERED: PIPERACILLIN/TAZOBACTAM/D5W 50 ML IV ONE (03:37)
[2024-06-29] MEDS: PIPERACILLIN SODIUM/TAZOBACTAM 3.375 G in IV DEXTROSE 5% 50 ML IV ONE (03:46)
[2024-06-29 05:11] VITALS: BP 103/51; TEMP 97.4; O2SAT 95
[2024-06-29] MEDS ORDERED: PIPERACILLIN SODIUM/TAZOBACTAM 3.375 G in IV DEXTROSE 5% 50 ML IV SCH (06:00)
[2024-06-29 06:05] LABS: ABG BASE EXCESS 0.9 mmol/L (-2.0-3.0); ABG PCO2 37.6 mmHg (32.0-45.0); ABG PO2 79.3 mmHg (83.0-108.0); ABG SITE RIGHT BRACHIAL; ABG TOTAL HEMOGLOBIN 10.5 G/dL (12.0-16.0); AaDO2 96.2 mmHg; COHb 0.4 % (0.5-1.5); MetHb 0.1 % (0.0-1.5); O2Hb 95.2 % (94.0-98.0)
[2024-06-29] MEDS: PANTOPRAZOLE SODIUM 40 MG TABLET.DR PO SCH (06:52)
[2024-06-29 07:05] LABS: BASOPHILS % (AUTO) 0.4 % (0.0-2.0); EOSINOPHILS # (AUTO) 0.1 K/uL (0.0-0.7); HEMATOCRIT 31.7 % (31.2-41.9); LYMPHOCYTES # (AUTO) 1.2 K/uL (0.8-4.8); LYMPHOCYTES % (AUTO) 15.9 % (20.5-51.5); MEAN CORPUSCULAR HGB CONC 35 g/dL (32.3-35.6); MEAN CORPUSCULAR VOLUME 88.9 fL (75.5-95.3); MONOCYTES # (AUTO) 1.1 K/uL (0.1-1.30); MONOCYTES % (AUTO) 15.5 % (0.0-11.0); NEUTROPHILS # (AUTO) 4.9 K/uL (1.8-8.9); NEUTROPHILS % (AUTO) 67.2 % (38.5-71.5); PLATELET COUNT (AUTO) 171 K/uL (179-408); RED BLOOD CELL COUNT(AUTO) 3.56 MIL/uL (3.63-4.92); RED CELL DISTRIBUTION WIDTH 13.9 % (12.3-17.7); WHITE BLOOD COUNT (AUTO) 7.3 K/uL (3.8-11.8)
[2024-06-29 07:21] VITALS: BP 97/44; TEMP 97.6; O2SAT 98
[2024-06-29 07:24] LABS: CALCIUM 8.6 mg/dL (8.5-10.1); CARBON DIOXIDE 29 mmol/L (21-32); CHLORIDE 110 mmol/L (98-107); CREATININE 0.8 mg/dL (0.6-1.3); DIFFERENTIAL COMMENT 1; GLUCOSE 106 mg/dL (74-106); POTASSIUM 4.1 mmol/L (3.5-5.1); SODIUM SERUM 146 mmol/L (136-145); UREA NITROGEN, BLOOD 17 mg/dL (7-18)
[2024-06-29] MEDS: PIPERACILLIN SODIUM/TAZOBACTAM 3.375 G in IV DEXTROSE 5% 100 ML IV SCH (09:05)
[2024-06-29 09:18] LABS: EOSINOPHILS % (MANUAL) 1 % (0-8); LYMPHOCYTES % (MANUAL) 16 % (20-40); MONOCYTES % (MANUAL) 16 % (2-10); NEUTROPHILS % (MANUAL) 67 % (42-75); PLATELET ESTIMATE DECREASED
[2024-06-29 16:00] VITALS: BP 112/68; TEMP 97.6; O2SAT 98
[2024-06-29 16:30] VITALS: O2SAT 97
[2024-06-29] MEDS: DIVALPROEX SPRINKLE 125 MG CAP.SPRINK PO SCH (16:47)
[2024-06-29 20:00] VITALS: BP 106/63; TEMP 98.1; O2SAT 97
[2024-06-29] MEDS: DONEPEZIL 10 MG TABLET PO SCH (20:31)
[2024-06-30] VITALS (7 sets, daily range): BP systolic 103–120; BP diastolic 56–73; TEMP 97.5–98.3; O2SAT 94–99
[2024-06-30 06:40] LABS: BASOPHILS % (AUTO) 0.6 % (0.0-2.0); EOSINOPHILS # (AUTO) 0.1 K/uL (0.0-0.7); EOSINOPHILS % (AUTO) 2.2 % (0.0-7.0); HEMOGLOBIN 10.4 g/dL (10.9-14.3); MEAN CORPUSCULAR HEMOGLOBIN 30.9 uug (24.7-32.8); MEAN CORPUSCULAR HGB CONC 35 g/dL (32.3-35.6); MEAN CORPUSCULAR VOLUME 88.9 fL (75.5-95.3); MONOCYTES # (AUTO) 0.7 K/uL (0.1-1.30); MONOCYTES % (AUTO) 11.9 % (0.0-11.0); NEUTROPHILS # (AUTO) 3.9 K/uL (1.8-8.9); NEUTROPHILS % (AUTO) 67.3 % (38.5-71.5); PLATELET COUNT (AUTO) 179 K/uL (179-408); RED BLOOD CELL COUNT(AUTO) 3.37 MIL/uL (3.63-4.92); RED CELL DISTRIBUTION WIDTH 13.9 % (12.3-17.7); WHITE BLOOD COUNT (AUTO) 5.8 K/uL (3.8-11.8)
[2024-06-30 06:44] LABS: DIFFERENTIAL COMMENT 1
[2024-06-30 06:51] LABS: CALCIUM 8.4 mg/dL (8.5-10.1); CARBON DIOXIDE 31 mmol/L (21-32); CHLORIDE 109 mmol/L (98-107); CREATININE 0.8 mg/dL (0.6-1.3); GLUCOSE 111 mg/dL (74-106); MAGNESIUM 1.8 mg/dL (1.8-2.4); PHOSPHOROUS 2.9 mg/dL (2.5-4.9); POTASSIUM 4.2 mmol/L (3.5-5.1); SODIUM SERUM 143 mmol/L (136-145); UREA NITROGEN, BLOOD 16 mg/dL (7-18)
[2024-06-30 09:42] LABS: IRON, SERUM 30 ug/dL (50-175)
[2024-06-30] MEDS: APIXABAN 2.5 MG TABLET PO SCH (09:50)
[2024-06-30] MEDS: AMIODARONE HCL IV 150 MG in IV DEXTROSE 5% 100 ML IV ONE (10:57)
[2024-06-30] MEDS: AMIODARONE HCL IV 450 MG in IV DEXTROSE 5% 250 ML IV PRN (11:08)
[2024-06-30] MEDS: QUETIAPINE FUMARATE 25 MG TABLET PO PRN (17:29)
[2024-07-01 04:21] VITALS: BP 127/69; TEMP 97.6; O2SAT 91
[2024-07-01 08:05] VITALS: BP 100/67; TEMP 97.7; O2SAT 97
[2024-07-01] MEDS: AMIODARONE HCL 200 MG TABLET PO SCH (08:39)
[2024-07-01 15:40] VITALS: O2SAT 97
[2024-07-01 19:00] VITALS: BP 150/84; TEMP 98.4; O2SAT 94
[2024-07-02] VITALS: BP 149/85; TEMP 97.8; O2SAT 95
[2024-07-02 00:17] VITALS: O2SAT 98
[2024-07-02 04:00] VITALS: BP 143/85; TEMP 98.3; O2SAT 97
[2024-07-02 06:41] LABS: BASOPHILS % (AUTO) 0.7 % (0.0-2.0); EOSINOPHILS # (AUTO) 0.1 K/uL (0.0-0.7); EOSINOPHILS % (AUTO) 1.9 % (0.0-7.0); HEMATOCRIT 30.4 % (31.2-41.9); HEMOGLOBIN 10.8 g/dL (10.9-14.3); LYMPHOCYTES # (AUTO) 0.7 K/uL (0.8-4.8); LYMPHOCYTES % (AUTO) 14.7 % (20.5-51.5); MEAN CORPUSCULAR HEMOGLOBIN 31.1 uug (24.7-32.8); MEAN CORPUSCULAR HGB CONC 36 g/dL (32.3-35.6); MEAN CORPUSCULAR VOLUME 87.2 fL (75.5-95.3); MONOCYTES # (AUTO) 0.5 K/uL (0.1-1.30); MONOCYTES % (AUTO) 10.9 % (0.0-11.0); NEUTROPHILS # (AUTO) 3.4 K/uL (1.8-8.9); NEUTROPHILS % (AUTO) 71.8 % (38.5-71.5); PLATELET COUNT (AUTO) 192 K/uL (179-408); RED BLOOD CELL COUNT(AUTO) 3.49 MIL/uL (3.63-4.92); RED CELL DISTRIBUTION WIDTH 13.6 % (12.3-17.7); WHITE BLOOD COUNT (AUTO) 4.7 K/uL (3.8-11.8)
[2024-07-02 06:54] LABS: CALCIUM 8.2 mg/dL (8.5-10.1); CARBON DIOXIDE 26 mmol/L (21-32); CHLORIDE 106 mmol/L (98-107); CREATININE 0.7 mg/dL (0.6-1.3); GLUCOSE 104 mg/dL (74-106); MAGNESIUM 1.6 mg/dL (1.8-2.4); PHOSPHOROUS 3.2 mg/dL (2.5-4.9); POTASSIUM 4.2 mmol/L (3.5-5.1); SODIUM SERUM 140 mmol/L (136-145); UREA NITROGEN, BLOOD 7 mg/dL (7-18)
[2024-07-02 07:30] LABS: DIFFERENTIAL COMMENT 1
[2024-07-02 08:00] VITALS: BP 148/80; TEMP 98.1; O2SAT 97
[2024-07-02] MEDS: MAGNESIUM SULFATE/D5W 100 ML IV SCH (08:27)
[2024-07-02] MEDS ORDERED: AMOX-421 PO (11:58)
[2024-07-02] MEDS ORDERED: AMIO200T6 PO (11:58)
[2024-07-02] MEDS ORDERED: APIX2.5T PO (11:58)
[2024-07-02 12:00] VITALS: BP 142/85; TEMP 97.4; O2SAT 97
[2024-07-02 16:00] VITALS: BP 142/83; TEMP 97.9; O2SAT 94
[2024-07-02] MEDS ORDERED: ZINC113P3 TP (18:11)
[2024-07-03] MEDS ORDERED: PROTEIN SUPPLEMENT (PROSTAT) 30 ML LIQUID PO SCH (08:00)
== END 2024-07-02 17:36 | DRG 871 ==
LOC: ER 21:12 → TELE3 23:29 → TELE-TD3 06-30 09:25 → TELE3 07-01 18:53 → MEDSURG3 07-02 07:42
PROVIDERS: ADMIT Nurse Practitioner Family; ATTEND Internal Medicine
DX: A41.9 Sepsis, unspecified organism (principal); G92.8 Other toxic encephalopathy; J69.0 Pneumonitis due to inhalation of food and vomit; J18.9 Pneumonia, unspecified organism; J96.01 Acute respiratory failure with hypoxia; E44.0 Moderate protein-calorie malnutrition; D68.59 Other primary thrombophilia; I67.82 Cerebral ischemia; F03.92 Unspecified dementia, unspecified severity, with psychotic disturbance; I48.0 Paroxysmal atrial fibrillation; R65.20 Severe sepsis without septic shock; E86.0 Dehydration; R62.7 Adult failure to thrive; Z68.24 Body mass index [BMI] 24.0-24.9, adult; I77.819 Aortic ectasia, unspecified site; Z74.09 Other reduced mobility; I10 Essential (primary) hypertension; E78.5 Hyperlipidemia, unspecified; Z79.899 Other long term (current) drug therapy; Z87.891 Personal history of nicotine dependence
CPT/HCPCS: 36415; 36600; 70030-TC; 71045; 83550; 83605; 83735; 84100; 84484; 85025; 87040; 93005; 93307; 94760; A4606; A4663; A6213; G0378; J0282; J2543; J3475; J7040; J7050

== ENCOUNTER 2024-07-02 17:59 | Inpatient (IN) | payer MEDICARE, OTHER ==
[~2024-07-02] VITALS: Ht 154.9 cm; Wt 58.5 kg
[~2024-07-02 17:59] MED LIST changes: +AMIO200T6 PO; +AMOX-421 PO; +APIX2.5T PO; -FAMO20TA8 PO
[2024-07-02] MEDS ORDERED: ZINC113P3 TP (18:11)
[2024-07-02] MEDS ORDERED: OLANZAPINE 2.5 MG TABLET PO PRN (19:00)
[2024-07-02] MEDS ORDERED: REMEDY ESSENTIAL ZINC PASTE 113 GM TP PRN (19:00)
[2024-07-02 21:00] VITALS: BP 145/97; TEMP 97.7; O2SAT 95
[2024-07-02] MEDS: ATORVASTATIN 20 MG TABLET PO SCH (21:12)
[2024-07-02] MEDS: AMIODARONE HCL 200 MG TABLET PO SCH (21:12)
[2024-07-02] MEDS: DONEPEZIL 10 MG TABLET PO SCH (21:12)
[2024-07-02] MEDS: APIXABAN 2.5 MG TABLET PO SCH (21:12)
[2024-07-03 07:39] VITALS: BP 136/69; TEMP 97.8; O2SAT 92
[2024-07-03 08:00] VITALS: BP 135/93; O2SAT 90
[2024-07-03] MEDS: DIVALPROEX ER 250 MG TAB.SR.24H PO SCH (09:20)
[2024-07-03] MEDS: AMOXICILLIN-CLAVUL 875-125MG TABLET PO SCH (09:21)
[2024-07-03] MEDS: METOPROLOL TARTRATE 25 MG TABLET PO SCH (09:21)
[2024-07-03 12:51] LABS: *BILIRUBIN,URIN NEGATIVE (NEGATIVE); *BLOOD, URINE 3+ (NEGATIVE); *CLARITY,URINE CLEAR (CLEAR); *COLOR,URINE YELLOW (YELLOW); *KETONES,URINE NEGATIVE (NEGATIVE); *PROTEIN,URINE 2+ (NEGATIVE); LEUKOCYTE ESTERASE ,URINE TRACE (NEGATIVE); NITRITE, URINE NEGATIVE (NEGATIVE); PH,URINE 6.5 (5.0-8.0); UGLUCOSE NEGATIVE (NEGATIVE)
[2024-07-03 13:02] LABS: BASOPHILS % (AUTO) 0.4 % (0.0-2.0); EOSINOPHILS # (AUTO) 0.1 K/uL (0.0-0.7); EOSINOPHILS % (AUTO) 2.3 % (0.0-7.0); HEMATOCRIT 34.5 % (31.2-41.9); HEMOGLOBIN 11.5 g/dL (10.9-14.3); LYMPHOCYTES # (AUTO) 0.2 K/uL (0.8-4.8); LYMPHOCYTES % (AUTO) 3.2 % (20.5-51.5); MEAN CORPUSCULAR HEMOGLOBIN 29.3 uug (24.7-32.8); MEAN CORPUSCULAR HGB CONC 33 g/dL (32.3-35.6); MEAN CORPUSCULAR VOLUME 88.3 fL (75.5-95.3); MONOCYTES # (AUTO) 0.6 K/uL (0.1-1.30); MONOCYTES % (AUTO) 12.6 % (0.0-11.0); NEUTROPHILS % (AUTO) 81.5 % (38.5-71.5); PLATELET COUNT (AUTO) 220 K/uL (179-408); RED BLOOD CELL COUNT(AUTO) 3.91 MIL/uL (3.63-4.92); RED CELL DISTRIBUTION WIDTH 14.2 % (12.3-17.7); WHITE BLOOD COUNT (AUTO) 4.9 K/uL (3.8-11.8)
[2024-07-03 13:06] LABS: DIFFERENTIAL COMMENT 1
[2024-07-03 13:17] LABS: CALCIUM 9.1 mg/dL (8.5-10.1); CARBON DIOXIDE 27 mmol/L (21-32); CHLORIDE 106 mmol/L (98-107); CREATININE 0.7 mg/dL (0.6-1.3); GLUCOSE 106 mg/dL (74-106); POTASSIUM 4.3 mmol/L (3.5-5.1); SODIUM SERUM 141 mmol/L (136-145); UREA NITROGEN, BLOOD 13 mg/dL (7-18)
[2024-07-03 13:24] LABS: ALANINE AMINOTRANSFERASE 9 U/L (14-59); ALBUMIN 2.5 g/dL (3.4-5.0); ALKALINE PHOSPHATASE 66 U/L (50-136); ASPARTATE AMINOTRANSFERASE 10 U/L (15-37); BILIRUBIN,TOTAL 0.7 mg/dL (0.2-1.0); TOTAL PROTEIN, SERUM 6.2 g/dL (6.4-8.2)
[2024-07-03 15:35] LABS: BACTERIA,URINE FEW /HPF (NONE SEEN); RBC,URINE 80-100 /HPF (0-3); YEAST,URINE BUDDING YEAST /HPF (NONE SEEN)
[2024-07-03 16:00] VITALS: BP 115/69; TEMP 98.4; O2SAT 90
[2024-07-03] MEDS: CEFTRIAXONE 1 G in IV DEXTROSE 5% 50 ML IV SCH (16:35)
[2024-07-03] MEDS: IV D5 1/2 NS 1000 ML 1,000 ML IV PRN (16:36)
[2024-07-03] MEDS: DIVALPROEX SPRINKLE 125 MG CAP.SPRINK PO SCH (17:54)
[2024-07-03] MEDS: VANCOMYCIN IV 1,000 MG in IV DEXTROSE 5% 250 ML IV SCH (18:01)
[2024-07-03 20:57] VITALS: BP 130/59; TEMP 98.7; O2SAT 93
[2024-07-04 08:00] VITALS: BP 123/67; TEMP 97.4; O2SAT 89
[2024-07-04 16:00] VITALS: BP 133/73; TEMP 97.4; O2SAT 89
[2024-07-04 20:21] VITALS: BP 120/66; TEMP 98.1; O2SAT 94
[2024-07-05 06:15] VITALS: BP 131/64; TEMP 98.1; O2SAT 95
[2024-07-05 09:35] LABS: CARBON DIOXIDE 27 mmol/L (21-32); CHLORIDE 105 mmol/L (98-107); CREATININE 0.7 mg/dL (0.6-1.3); GLUCOSE 119 mg/dL (74-106); POTASSIUM 3.8 mmol/L (3.5-5.1); SODIUM SERUM 142 mmol/L (136-145); UREA NITROGEN, BLOOD 9 mg/dL (7-18)
[2024-07-05] MEDS ORDERED: HYDROCODONE/APAP 5-325MG TABLET PO PRN (11:00)
[2024-07-05 15:50] VITALS: BP 112/66; TEMP 97.4; O2SAT 94
[2024-07-05 16:20] VITALS: O2SAT 95
[2024-07-05 21:09] VITALS: BP 127/63; TEMP 98.1; O2SAT 95
[2024-07-05 23:55] VITALS: O2SAT 96
[2024-07-06 00:44] VITALS: O2SAT 95
[2024-07-06 07:30] VITALS: BP 139/61; TEMP 97.6; O2SAT 89
[2024-07-06 09:15] VITALS: BP 121/62; TEMP 97.8; O2SAT 97
[2024-07-06 14:18] VITALS: O2SAT 97
[2024-07-06 19:27] VITALS: TEMP 98.4
[2024-07-06] MEDS: IPRATROPIUM BROMIDE 0.5 MG/2.5 ML NEBU NEB SCH (19:30)
[2024-07-06] MEDS: LEVALBUTEROL HCL NEB 0.63 MG/3 ML NEBU NEB SCH (19:30)
[2024-07-07] VITALS (9 sets, daily range): BP systolic 112–141; BP diastolic 57–71; TEMP 97.1–98.1; O2SAT 92–100
[2024-07-07] MEDS: ALBUTEROL SULFATE 1.25 MG/3 ML NEBU NEB SCH (07:35)
[2024-07-07 08:23] LABS: BASOPHILS % (AUTO) 0.4 % (0.0-2.0); EOSINOPHILS % (AUTO) 0.9 % (0.0-7.0); HEMATOCRIT 31.8 % (31.2-41.9); HEMOGLOBIN 10.9 g/dL (10.9-14.3); LYMPHOCYTES # (AUTO) 0.6 K/uL (0.8-4.8); LYMPHOCYTES % (AUTO) 26.6 % (20.5-51.5); MEAN CORPUSCULAR HEMOGLOBIN 29.9 uug (24.7-32.8); MEAN CORPUSCULAR HGB CONC 34 g/dL (32.3-35.6); MONOCYTES # (AUTO) 0.4 K/uL (0.1-1.30); MONOCYTES % (AUTO) 15.5 % (0.0-11.0); NEUTROPHILS # (AUTO) 1.3 K/uL (1.8-8.9); NEUTROPHILS % (AUTO) 56.6 % (38.5-71.5); PLATELET COUNT (AUTO) 183 K/uL (179-408); RED BLOOD CELL COUNT(AUTO) 3.65 MIL/uL (3.63-4.92); RED CELL DISTRIBUTION WIDTH 14.3 % (12.3-17.7); WHITE BLOOD COUNT (AUTO) 2.4 K/uL (3.8-11.8)
[2024-07-07 08:35] LABS: DIFFERENTIAL COMMENT 1
[2024-07-07 08:41] LABS: CALCIUM 8.2 mg/dL (8.5-10.1); CARBON DIOXIDE 31 mmol/L (21-32); CHLORIDE 106 mmol/L (98-107); CREATININE 0.6 mg/dL (0.6-1.3); GLUCOSE 84 mg/dL (74-106); SODIUM SERUM 145 mmol/L (136-145); UREA NITROGEN, BLOOD 9 mg/dL (7-18); VANCOMYCIN,TROUGH 4.5 ug/mL (10.0-20.0)
[2024-07-07 09:14] LABS: MAGNESIUM 1.8 mg/dL (1.8-2.4); PHOSPHOROUS 2.9 mg/dL (2.5-4.9)
[2024-07-07 13:58] LABS: THYROID STIMULATING HORMONE 3.07 mIU/mL (0.358-3.740)
[2024-07-07 16:51] LABS: BAND % (MANUAL) 8 % (0-10); EOSINOPHILS % (MANUAL) 1 % (0-8); LYMPHOCYTES % (MANUAL) 23 % (20-40); MONOCYTES % (MANUAL) 16 % (2-10); NEUTROPHILS % (MANUAL) 52 % (42-75)
[2024-07-08] VITALS (10 sets, daily range): BP systolic 92–133; BP diastolic 46–65; TEMP 97.3–98.3; O2SAT 90–99
[2024-07-08] MEDS: QUETIAPINE FUMARATE 25 MG TABLET PO PRN (10:41)
[2024-07-08] MEDS ORDERED: IOHEXOL 350 100 ML INFUS..BTL ONE (11:00)
[2024-07-08] MEDS ORDERED: SWABABLE VALVE TRANSFER SET EA MC ONE (11:01)
[2024-07-08] MEDS ORDERED: IV NORMAL SALINE 250 ML IV ONE (11:01)
[2024-07-09] VITALS (9 sets, daily range): BP systolic 108; BP diastolic 58; TEMP 97.2–97.5; O2SAT 91–99
[2024-07-10 01:10] LABS: METHYLMALONIC ACID 101 nmol/L (0-378)
== END 2024-07-09 15:45 | DRG 871 ==
PROVIDERS: ADMIT Physical Medicine & Rehabilitation Pain Medicine; ATTEND Physical Medicine & Rehabilitation Pain Medicine
DX: A41.9 Sepsis, unspecified organism (principal); G92.8 Other toxic encephalopathy; J69.0 Pneumonitis due to inhalation of food and vomit; J96.01 Acute respiratory failure with hypoxia; J96.02 Acute respiratory failure with hypercapnia; E44.0 Moderate protein-calorie malnutrition; J44.0 Chronic obstructive pulmonary disease with (acute) lower respiratory infection; N39.0 Urinary tract infection, site not specified; I10 Essential (primary) hypertension; Z87.440 Personal history of urinary (tract) infections; D64.9 Anemia, unspecified; F03.90 Unspecified dementia, unspecified severity, without behavioral disturbance, psychotic disturbance, mood disturbance, and anxiety; I35.8 Other nonrheumatic aortic valve disorders; I48.0 Paroxysmal atrial fibrillation; R62.7 Adult failure to thrive; Z87.891 Personal history of nicotine dependence; R16.2 Hepatomegaly with splenomegaly, not elsewhere classified; S52.502D Unspecified fracture of the lower end of left radius, subsequent encounter for closed fracture with routine healing; X58.XXXD Exposure to other specified factors, subsequent encounter
CPT/HCPCS: 36415; 70030-TC; 71045; 71275; 73090; 80164; 83735; 83921; 84100; 84443; 85025; 94640; 94760; 97535-GO-CO; A4663; J0696; J3370; J3590; J7040; J7050; J7070; Q9967